=== PATIENT | female | born 1995 | race Caucasian/White ===

== ENCOUNTER 2017-10-21 19:21 | Inpatient (IN) | payer OTHER ==
[2017-10-21] MEDS ORDERED: ACETAMINOPHEN 325 MG TABLET PO PRN (20:03)
[2017-10-21] MEDS ORDERED: DINOPROSTONE 10 MG VAGINAL INSERT.SR PV ONE (20:03)
[2017-10-21] MEDS ORDERED: RINGERS SOLUTION,LACTATED 300 ML IV ONE (20:03)
[2017-10-21] MEDS ORDERED: MAG HYDROX/AL HYDROX/SIMETH SUSP 30 ML UDCUP PO PRN (20:03)
[2017-10-21] MEDS ORDERED: ZOLPIDEM TARTRATE 5 MG TABLET PO PRN (20:03)
[2017-10-21 20:18] LABS: APPEARANCE,URINE SLIGHTLY-CLOUDY; BILIRUBIN,URINE NEGATIVE (NEGATIVE); COLOR,URINE STRAW; GLUCOSE, URINE NEGATIVE (NEGATIVE); KETONES,URINE NEGATIVE (NEGATIVE); LEUKOCYTE ESTERASE,URINE NEGATIVE (NEGATIVE); NITRITE,URINE NEGATIVE (NEGATIVE); PROTEIN,URINE NEGATIVE (NEGATIVE); URINE SPECIFIC GRAVITY 1.006; UROBILINOGEN,URINE NEGATIVE mg/dL (<2.0)
[2017-10-21 20:29] LABS: HEMATOCRIT 32.7 % (36.0-47.0); HEMOGLOBIN 11.5 g/dL (12.0-15.5); MEAN CORPUSCULAR HEMOGLOBIN 31.4 pg (27.0-33.4); MEAN CORPUSCULAR HGB CONC 35.1 g/dL (32.0-36.0); MEAN CORPUSCULAR VOLUME 90 fl (80-97); PLATELET COUNT 163 10^3/uL (150-450); RED BLOOD COUNT 3.66 10^6/uL (3.72-5.28); RED CELL DISTRIBUTION WIDTH 13.3 % (11.5-14.0); WHITE BLOOD COUNT 12.4 10^3/uL (4.0-10.5)
[2017-10-21 20:34] LABS: URINE AMPHETAMINES SCREEN NEGATIVE; URINE BARBITURATES SCREEN NEGATIVE; URINE BENZODIAZEPINES SCREEN NEGATIVE; URINE COCAINE SCREEN NEGATIVE; URINE MARIJUANA (THC) SCREEN NEGATIVE; URINE METHADONE SCREEN NEGATIVE; URINE PHENCYCLIDINE SCREEN NEGATIVE
[2017-10-21] MEDS ORDERED: DINOPROSTONE 10 MG VAGINAL INSERT.SR ONE (22:04)
[2017-10-21] MEDS: RINGERS SOLUTION,LACTATED 1,000 ML IV PRN (22:26)
[2017-10-21 23:45] LABS: ABSOLUTE LYMPHOCYTES# (MANUAL) 2.2 10^3/uL (0.5-4.7); ABSOLUTE MONOCYTES # (MANUAL) 0.9 10^3/uL (0.1-1.4); ABSOLUTE NEUTROPHILS# (MANUAL) 9.3 10^3/uL (1.7-8.2); BASOPHILS % (MANUAL) 0 % (0-2); EOSINOPHILS % (MANUAL) 0 % (0-6); LYMPHOCYTES % (MANUAL) 17 % (13-45); MONOCYTES % (MANUAL) 7 % (3-13); SEGMENTED NEUTROPHILS % (MAN) 75 % (42-78); TOTAL CELLS COUNTED 100
[2017-10-21 23:48] LABS: PLATELET COMMENT ADEQUATE; TEAR DROP CELLS SLIGHT; TOXIC GRANULATION SLIGHT
--- NOTE | 2017-10-22 08:55 | L&D Progress Notes ---
PROGRESS NOTES Datetime Report Generated by CPN: 10/22/2017 08:55 PROGRESS NOTE Impression: Reassuring Heart Rate Plan: Continue Present Management; Cervical Ripening Vital Signs : Reviewed; Within Normal Limits Comment: Cat 1 strip, irregular mild uc, cervidil in place, ROM 0511, talking thru uc's SIGNATURE SIGNATURE: [id number] Assignment: Bridger Vincent MD Signature: with User ID: [email or web address] : with User ID: [email or web address]
[2017-10-22] MEDS ORDERED: OXYTOCIN/NORMAL SALINE 20 UNIT/1,000 ML RTUINJ IV PRN ×2 (11:18→19:01)
[2017-10-22] MEDS ORDERED: LIDOCAINE 1% INJ-PF (10 MG/ML) 30 ML SDV ONE (11:24)
[2017-10-22] MEDS ORDERED: MISOPROSTOL 0.2 MG TABLET ONE (11:24)
[2017-10-22] MEDS ORDERED: OXYTOCIN/NORMAL SALINE 20 UNIT/1,000 ML RTUINJ ONE (11:25)
[2017-10-22] MEDS ORDERED: NALBUPHINE HCL INJ 10 MG/1 ML AMPULE IV ONE (13:54)
[2017-10-22] MEDS ORDERED: NALBUPHINE HCL INJ 10 MG/1 ML AMPULE ONE (13:55)
[2017-10-22] MEDS ORDERED: EPHEDRINE SULFATE INJ 50 MG/1 ML AMPULE ONE (15:27)
[2017-10-22] MEDS ORDERED: FENTANYL/BUPIVACAINE/NS/PF 200 MCG/100 ML RTUINJ EPI ONE (15:29)
[2017-10-22] MEDS ORDERED: BUPIVACAINE HCL 0.5 % INJ/PF 30 ML SDV ONE (15:32)
[2017-10-22] MEDS: RINGERS SOLUTION,LACTATED 1,000 ML IV PRN (16:03)
[2017-10-22] MEDS ORDERED: NA PHOS,M-B/NA PHOS,DI-BA (ADULT) 133 ML ENEMA PR PRN (19:01)
[2017-10-22] MEDS ORDERED: MAGNESIUM HYDROXIDE SUSP 30 ML UDCUP PO PRN (19:01)
[2017-10-22] MEDS ORDERED: PROMETHAZINE HCL 25 MG TABLET PO PRN (19:01)
[2017-10-22] MEDS ORDERED: DIBUCAINE 1% OINTMENT 28 GM TP PRN (19:01)
[2017-10-22] MEDS ORDERED: PROMETHAZINE HCL 25 MG SUPP.RECT PR PRN (19:01)
[2017-10-22] MEDS ORDERED: BENZOCAINE/MENTHOL AEROSOL SPRAY 56 ML TOP PRN (19:01)
[2017-10-22] MEDS ORDERED: ACETAMINOPHEN 650 MG SUPP.RECT PR PRN (19:01)
[2017-10-22] MEDS ORDERED: ACETAMINOPHEN WITH CODEINE #3 TABLET PO PRN (19:01)
[2017-10-22] MEDS ORDERED: DIPH/PERTUSS(ACELL)/TETANUS VAC/PF 0.5 ML SYR (>=10YO) IM PRN (19:01)
[2017-10-22] MEDS ORDERED: GLYCERIN/WITCH HAZEL LEAF 1 EACH MED..PAD TP PRN (19:01)
[2017-10-22] MEDS ORDERED: MEASLES,MUMPS&RUBELLA VACC/PF 0.5 ML VIAL SUBCUT PRN (19:01)
[2017-10-22] MEDS ORDERED: DIPHENHYDRAMINE HCL 25 MG CAPSULE PO PRN (19:01)
[2017-10-22] MEDS ORDERED: ZOLPIDEM TARTRATE 5 MG TABLET PO PRN (19:01)
[2017-10-22] MEDS ORDERED: PROMETHAZINE HCL INJ 25 MG/1 ML VIAL IV PRN (19:01)
[2017-10-22] MEDS ORDERED: PSEUDOEPHEDRINE HCL 30 MG TABLET PO PRN (19:01)
--- NOTE | 2017-10-22 19:04 | PDOC DELIVERY SUMMARY ---
Delivery Summary - Maternal Ruptured Membranes: AROM Fluids: Clear - Delivery Labor: Induction Presentation: Vertex Uterine Contraction Monitoring: External Support Person Present: Yes Placenta: Within Normal Limits Nuchal Cord: No - Medications Type of Anesthesia:: Epidural - vaccume assisted for low FHT's and no ability to push 1 application no pop offs one pull
[2017-10-22] MEDS ORDERED: ONDANSETRON HCL INJ/PF 4 MG/2 ML SDV IV ONE (19:35)
[2017-10-22] MEDS ORDERED: ONDANSETRON HCL INJ/PF 4 MG/2 ML SDV ONE (19:36)
--- NOTE | 2017-10-22 19:41 | Warning Signs in Babies ---
VOD Warning Signs Datetime Report Generated by N: 10/22/2017 19:41 VOD#608 -Warning Signs in Babies: Viewed with Parent(s)/Family (10/22/2017 19:30:Kortney Ann RN)
--- NOTE | 2017-10-22 21:32 | Delivery Summary ---
Del Sum A-C Datetime Report Generated by CPN: 10/22/2017 21:31 DELIVERY PERSONNEL DELIVERY PERSONNEL: [id number] Delivery Doctor:: Bridger Vincent MD Labor and Delivery Nurse:: Kathleen Ramirez RN Labor and Delivery Nurse:: Stewart Barragan RN Nursery Nurse:: Jud Snyder RN Pharmacist Per Diem/PROJECT MANAGER RETAIL: Julissa Molina CNA II Pharmacist Per Diem/PROJECT MANAGER RETAIL: Tamica Hurley, PROFESSOR OF MEDICINE Additional Personnel: : Nurys PIERCE, ST MATERNAL INFORMATION Delivery Anesthesia: Epidural Medications After Delivery: Pitocin Bolus-Please Comment; Pitocin Drip 20 Units/1000ml NSS Meds After Delivery Comment: 20 units pitocin after placenta delivery Maternal Complications: None Provider Comments: vaccume assisted 1 application 1 pull no pop offs for decreased FHT's LABOR SUMMARY EDC: 10/14/2017 00:00 No. Babies in Womb: 1 Attempted: No Labor Anesthesia: Epidural LABOR INFORMATION Reason for Induction: Post Dates Onset of Labor: 10/22/2017 12:30 Complete Dilatation: 10/22/2017 17:54 Cervical Ripening Agents: Cervidil Oxytocin: Induction Group B Beta Strep: Negative Antibiotics # of Doses: 0 Steroids Given: None Reason Steroids Not Administered: Not Applicable MEMBRANES Membranes Rupture Method: Spontaneous Rupture of Membranes: 10/22/2017 05:11 Length of Rupture (hr): 13.57 Amniotic Fluid Color: Clear Amniotic Fluid Amount: Small Amniotic Fluid Odor: Normal STAGES OF LABOR Stage 1 hr: 5 Stage 1 min: 24 Stage 2 hr: 0 Stage 2 min: 51 Stage 3 hr: 0 Stage 3 min: 3 Total Time in Labor hr: 6 Total Time in Labor min: 18 VAGINAL DELIVERY Episiotomy: None Laceration #1: Vaginal Laceration Extension #1: First Degree Other Laceration: RT SIDEWALL LAC Laceration Repair: Yes Laceration Repair Note: 2-0 vicryl Sponge Count Correct: N/A Sharps Count Correct: N/A CSECTION DELIVERY Primary Indication: N/A Secondary Indication: N/A CSection Urgency: n/a CSection Incidence: N/A Labor: N/A Elective: N/A CSection Incision: N/A BABY A INFORMATION Infant Delivery Date/Time: 10/22/2017 18:45 Method of Delivery: Vaginal Born in Route : No : N/A Forceps: N/A Vacuum Extraction: Successful Shoulder Dystocia : No PRESENTATION/POSITION BABY A Presentation: Cephalic Cephalic Presentation: Vertex Vertex Position: Right Occipital Anterior Breech Presentation: N/A PLACENTA INFORMATION BABY A Placenta Delivery Time : 10/22/2017 18:48 Placenta Method of Delivery: Spontaneous Placenta Status: Delivered SCORES BABY A Heart Rate 1 min: >100 bpm Resp Effort 1 min: Good Cry Reflex Irritability 1 min: Cough or Sneeze or Pulls Away Muscle Tone 1 min: Active Motion Color 1 min: Blue/Pale Resuscitation Effort 1 min: Tactile Stimulation SCORE 1 MIN: 8 Heart Rate 5 min: >100 bpm Resp Effort 5 min: Good Cry Reflex Irritability 5 min: Cough or Sneeze or Pulls Away Muscle Tone 5 min: Active Motion Color 5 min: Body [place], Extremities Blue Resuscitation Effort 5 min: Tactile Stimulation SCORE 5 MIN: 9 INFORMATION BABY A Gestational Age at Delivery: 41.1 Gestational Status: Late Term- 41- 41.6 Weeks Outcome : Liveborn Infant Condition : Stable Sex: Female WEIGHT/LENGTH BABY A Infant Birthweight (gm): 3210 Weight (lb): 7 Weight (oz): 1 Length (in): 20.00 Infant Length (cm): 50.80 CORD INFORMATION BABY A No. Cord Vessels: 3 Nuchal Cord : N/A Cord Blood Taken: Yes-For Eval (Mom's Blood Type - or O+) Infant Suction: Mouth; Nose ASSESSMENT BABY A Physical Findings at Delivery: Other Physical Findings- Other: see nursery notes Respirations: Appears Normal Skin to Skin: Yes Business Services Clerk/ALS Called : No Care By: Ernie Snyder RN Transferred To: Remains with Mother BABY B INFORMATION : N/A SIGNATURES Signature: with User ID: [email or web address]
[2017-10-22] MEDS: FAMOTIDINE 20 MG TABLET PO SCH (22:12)
[2017-10-22] MEDS: IBUPROFEN 800 MG TABLET PO SCH (22:12)
[2017-10-23] MEDS: IBUPROFEN 800 MG TABLET PO SCH ×3 (06:11→21:49)
[2017-10-23 08:16] LABS: HEMATOCRIT 27.5 % (36.0-47.0); HEMOGLOBIN 9.5 g/dL (12.0-15.5); MEAN CORPUSCULAR HEMOGLOBIN 31.4 pg (27.0-33.4); MEAN CORPUSCULAR HGB CONC 34.6 g/dL (32.0-36.0); MEAN CORPUSCULAR VOLUME 91 fl (80-97); PLATELET COUNT 135 10^3/uL (150-450); RED BLOOD COUNT 3.04 10^6/uL (3.72-5.28); RED CELL DISTRIBUTION WIDTH 13.5 % (11.5-14.0); WHITE BLOOD COUNT 12.2 10^3/uL (4.0-10.5)
[2017-10-23] MEDS: FAMOTIDINE 20 MG TABLET PO SCH ×2 (10:28→21:50)
[2017-10-23] MEDS: PRENATAL VITAMIN W DHA CAPSULE PO SCH (10:28)
[2017-10-23] MEDS: SENNOSIDES/DOCUSATE 8.6-50 MG 1 EACH TABLET PO SCH (10:29)
[2017-10-23] MEDS: DOCUSATE SODIUM 100 MG CAPSULE PO SCH ×2 (10:29→18:38)
[2017-10-23] MEDS: FERROUS SULFATE 325 MG TABLET PO SCH ×2 (10:29→18:37)
--- NOTE | 2017-10-23 15:23 | PDOC PROGRESS REPORT ---
Subjective-OB Progress Note for:: 10/23/17 Subjective: 21yo G1 now P1 s/p VAVD ppd1. Ambulating, voiding and without difficulty. Bonding well with baby. Denies any other concerns at this time. Physical Exam (OB) Vital Signs: Temp Pulse Resp BP Pulse Ox 97.7 F 68 15 115/64 98 10/23/17 08:44 10/23/17 08:44 10/23/17 08:44 10/23/17 08:44 10/23/17 08:44 Intake & Output 10/22/17 10/23/17 10/24/17 06:59 06:59 06:59 Intake Total 300 1000 Balance 300 1000 Weight 77.5 kg - General General Appearance: Appears well In distress: None - PIH/Pre-Eclampsia DTR's: 1 + Headache: Absent Epigastric Pain: No Visual Changes: No - Episiotomy/Laceration Site Condition: Well Approximated - Lochia Lochia Amount: Scant < 10 ml Lochia Color: Rubra/Red - Abdomen Description: Soft, Round Hernia Present: No Fundal Description: Firm, Midline Fundal Height: u/u - u/2 - Respiratory Respiratory Status: No respiratory distress - Extremities Upper extremity: Normal inspection Lower extremities: Normal inspection - Neurological Cognition: Normal Orientation: AAOx4 - Psychological Associated symptoms: Normal affect, Normal mood Objective-Diagnostic Laboratory: 10/23/17 07:20 10/23/17 07:20 WBC 12.2 H RBC 3.04 L Hgb 9.5 L Hct 27.5 L MCV 91 MCH 31.4 MCHC 34.6 RDW 13.5 Plt Count 135 L Assessment and Plan(PN) - Assessment and Plan (1) Status post vacuum-assisted vaginal delivery Is this a current diagnosis for this admission?: Yes Plan: routine pp care. (2) Anemia affecting in third trimester Is this a current diagnosis for this admission?: Yes Plan: increase dietary iron and feso4 bid. (3) Acute blood loss anemia Is this a current diagnosis for this admission?: Yes Plan: increase dietary iron and feso4 bid. (4) Post term at 41 weeks gestation Is this a current diagnosis for this admission?: Yes Plan: delivered - Time Spent with Patient Time with patient: Less than 15 minutes Medications reviewed and adjusted accordingly: Yes - Disposition Anticipated Discharge: Home Within: within 24 hours
[2017-10-24] MEDS: IBUPROFEN 800 MG TABLET PO SCH (05:36)
[2017-10-24 09:29] VITALS: BP 100/65
[2017-10-24] MEDS: PRENATAL VITAMIN W DHA CAPSULE PO SCH (09:39)
[2017-10-24] MEDS: SENNOSIDES/DOCUSATE 8.6-50 MG 1 EACH TABLET PO SCH (09:39)
[2017-10-24] MEDS: DOCUSATE SODIUM 100 MG CAPSULE PO SCH (09:39)
[2017-10-24] MEDS: FERROUS SULFATE 325 MG TABLET PO SCH (09:40)
--- NOTE | 2017-10-24 11:15 | PDOC PROGRESS REPORT ---
Subjective-OB Progress Note for:: 10/24/17 Subjective: PP Day #2, O+, Rubella Immune, , no complaints today Physical Exam (OB) Vital Signs: Temp Pulse Resp BP Pulse Ox 97.9 F 70 16 100/65 96 10/24/17 10:17 10/24/17 10:17 10/24/17 10:17 10/24/17 10:17 10/24/17 10:17 Intake & Output 10/23/17 10/24/17 10/25/17 06:59 06:59 06:59 Intake Total 1000 800 Balance 1000 800 - General General Appearance: Appears well, Alert In distress: None - PIH/Pre-Eclampsia DTR's: 1 + Clonus: Negative Headache: Absent Epigastric Pain: No Visual Changes: No - Lochia Lochia Amount: Scant < 10 ml Lochia Color: Rubra/Red - Abdomen Description: Tender, Soft Hernia Present: No Fundal Description: Firm, Midline Fundal Height: u/u - u/2 - Respiratory Respiratory Status: No respiratory distress - Abdominal Distension: No distension - Extremities Upper extremity: Normal inspection Lower extremities: Normal inspection - Neurological Cognition: Normal Orientation: AAOx4 - Psychological Associated symptoms: Normal affect, Normal mood Objective-Diagnostic Laboratory: 10/23/17 07:20 Assessment and Plan(PN) - Assessment and Plan (1) Acute blood loss anemia Is this a current diagnosis for this admission?: Yes (2) Anemia affecting in third trimester Is this a current diagnosis for this admission?: Yes (3) Post term at 41 weeks gestation Is this a current diagnosis for this admission?: Yes (4) Status post vacuum-assisted vaginal delivery Is this a current diagnosis for this admission?: Yes - Time Spent with Patient Time with patient: Less than 15 minutes Medications reviewed and adjusted accordingly: Yes - Disposition Anticipated Discharge: Home Disposition: stable condition
--- NOTE | 2017-10-24 11:21 | PDOC DISCHARGE SUMMARY ---
Final Diagnosis Discharge Date: 10/24/17 - Final Diagnosis (1) Acute blood loss anemia Is this a current diagnosis for this admission?: Yes (2) Anemia affecting in third trimester Is this a current diagnosis for this admission?: Yes (3) Post term at 41 weeks gestation Is this a current diagnosis for this admission?: Yes Discharge Data - Discharge Medication Prescriptions: Ferrous Sulfate [Feosol 325 mg Tablet] 325 mg PO DAILY 30 Days #30 Ibuprofen [Motrin 800 mg Tablet] 800 mg PO Q8 #48 tablet Home Medications: Vit/Iron Fum/Folic AC [ Tablet] 1 each PO DAILY 10/21/17 Ferrous Sulfate [Feosol 325 mg Tablet] 325 mg PO DAILY 30 Days #30 10/24/17 Ibuprofen [Motrin 800 mg Tablet] 800 mg PO Q8 #48 tablet 10/24/17 Reason(s) for Admission: Onset of Labor Procedures: NST, Ultrasound Intrapartum Procedure(s): Spontaneous Vaginal Delivery Complication(s): Laceration-Perineal Laceration-Degree: 1st - Diagnosis Test Laboratory: Temp Pulse Resp BP Pulse Ox 97.9 F 70 16 100/65 96 10/24/17 10:17 10/24/17 10:17 10/24/17 10:17 10/24/17 10:17 10/24/17 10:17 10/21/17 10/21/17 10/21/17 19:31 20:19 20:19 RBC 3.66 L Cancelled Hgb 11.5 L Cancelled Hct 32.7 L Cancelled Urine Opiates Screen NEGATIVE 10/23/17 07:20 RBC 3.04 L Hgb 9.5 L Hct 27.5 L Urine Opiates Screen - Discharge information/Instructions Discharge Activity: Activity As Tolerated, Keep Legs Elevated, No Lifting Over 10 Pounds, Pelvic Rest Discharge Diet: As Tolerated, Regular Disposition: HOME, SELF-CARE [facility] with: [facility] in: 3, Weeks
== END 2017-10-24 15:05 | disposition home or self-care (01) | DRG 775 ==
LOC: LR 19:21 → 2S 10-22 21:08
PROVIDERS: ADMIT Obstetrics & Gynecology Gynecology; ATTEND Obstetrics & Gynecology Gynecology
PROC: 10D07Z6 Extraction of Products of Conception, Vacuum, Via Natural or Artificial Opening (ICD-10-PCS; principal; 2017-10-22)
PROC: 4A1HXCZ Monitoring of Products of Conception, Cardiac Rate, External Approach (ICD-10-PCS; 2017-10-22)
PROC: 0HQ9XZZ Repair Perineum Skin, External Approach (ICD-10-PCS; 2017-10-22)
DX: O76 Abnormality in fetal heart rate and rhythm complicating labor and delivery (principal); D62 Acute posthemorrhagic anemia; O48.0 Post-term pregnancy; O99.02 Anemia complicating childbirth; O70.0 First degree perineal laceration during delivery; Z37.0 Single live birth; Z3A.41 41 weeks gestation of pregnancy
CPT/HCPCS: 36415; 80307; 81005; 85025; 85027; 86592; 86850; 86900; 86901; J2300; J2405; J2590; J3490